=== PATIENT | male | born 1960 | race African-American/Black ===

== ENCOUNTER 2024-07-06 22:44 | Inpatient (IN) | payer OTHER ==
[2024-07-07 00:01] LABS: EPI CELLS 3 /uL (0-25.1); HYALINE CASTS 0 /uL (0-3.1); PH,URINE 7.5 (5.0-8.0); URINE APPEARANCE CLOUDY; URINE BACTERIA >9,000 /uL (0-1359); URINE BILIRUBIN NEGATIVE (NEGATIVE); URINE COLOR YELLOW; URINE GLUCOSE (UA) TRACE (NEGATIVE); URINE KETONE TRACE (NEGATIVE); URINE LEUK ESTERASE 2+ (NEGATIVE); URINE NITRITE NEGATIVE (NEGATIVE); URINE PROTEIN 3+ (NEGATIVE); URINE RBC 181 /uL (0-23.9); URINE WBC 1316 /uL (0-25.8)
[2024-07-07] MEDS ORDERED: morphine SULFATE 4 MG/ML VIAL ONE (00:12)
[2024-07-07] MEDS ORDERED: ACETAMINOPHEN INJECTION 100 ML IVPB ONE (00:12)
[2024-07-07] MEDS ORDERED: CEFTRIAXONE 1 GM/50 ML BAG ONE (00:12)
[2024-07-07 00:16] LABS: HEMATOCRIT 31.1 % (35.4-49); HEMOGLOBIN 10.3 GM/dL (11.7-16.9); MCH 26.3 pg (25.7-33.7); MEAN CELL VOLUME 79.7 fl (80-96); MEAN PLT VOLUME 8.4 fl (7.5-11.1); PLATELET COUNT 323 10^3/uL (134-434); RBC 3.91 M/mm3 (4.00-5.60); RDW 16.1 % (11.9-15.9); WHITE BLOOD COUNT 9.4 K/mm3 (4.0-10.0)
[2024-07-07 00:20] LABS: INR 1.16 (0.83-1.09)
[2024-07-07 00:23] LABS: ACTIVATED PTT 31.6 SECONDS (25.2-36.5)
[2024-07-07] MEDS: SODIUM CHLORIDE 0.9% 500 ML INFUS.BAG IV ONE ×3 (00:24→03:01)
[2024-07-07] MEDS: ACETAMINOPHEN 1000 MG/100 ML BAG IVPB ONE (00:24)
[2024-07-07 00:35] LABS: POTASSIUM 4.2 mmol/L (3.5-5.1)
[2024-07-07 00:37] LABS: CALCIUM 9.5 mg/dL (8.5-10.1)
[2024-07-07 00:38] LABS: ALBUMIN 2.8 g/dl (3.4-5.0); BLOOD UREA NITROGEN 21.6 mg/dL (7-18)
[2024-07-07 00:41] LABS: CREATININE 1.3 mg/dL (0.55-1.3)
[2024-07-07 00:42] LABS: BILIRUBIN,TOTAL 0.7 mg/dL (0.2-1); TOT PROT 7.6 g/dl (6.4-8.2)
[2024-07-07] MEDS: morphine CARPU-JECT 2 MG/1 ML DISP.SYRIN IVPUSH ONE (00:43)
[2024-07-07 00:59] LABS: LACTIC ACID 2.2 mmol/L (0.4-2.0)
[2024-07-07] MEDS ORDERED: KETOROLAC TROMETHAMINE 15 MG/ML VIAL ONE (01:45)
[2024-07-07] MEDS: IBUPROFEN 400 MG TABLET (FP) PO ONE (01:52)
[2024-07-07] MEDS: KETOROLAC TROMETHAMINE 15 MG/ML VIAL IVPUSH ONE (01:54)
[2024-07-07] MEDS: morphine CARPU-JECT 4 MG/1 ML DISP.SYRIN IVPUSH ONE (02:00)
[2024-07-07] MEDS ORDERED: SODIUM CHLORIDE 500 ML IV STA (05:45)
[2024-07-07 06:24] LABS: ANISOCYTOSIS 1+; MACROCYTOSIS 0
[2024-07-07] MEDS: SODIUM CHLORIDE 1,000 ML IV STA (06:27)
[2024-07-07] MEDS: levETIRAcetam 500 MG/5 ML INJECTION VIAL IVPB STA (06:28)
[2024-07-07] MEDS: GABAPENTIN 300 MG CAPSULE PO SCH (06:28)
[2024-07-07] MEDS: INSULIN (LEVEMIR) 100 UNITS/ML UNITS SQ SCH (06:29)
[2024-07-07] MEDS: INSULIN ASPART SLIDING SCALE (NOVOLOG) 1 VIAL SQ SCH (06:30)
[2024-07-07] MEDS: levETIRAcetam 500 MG TABLET (FP) PO ONE (06:46)
[2024-07-07] MEDS: ENOXAPARIN NA (PORCINE) 40 MG/0.4 ML DISP.SYRIN SQ SCH (09:18)
[2024-07-07] MEDS: TAMSULOSIN HCL 0.4 MG CAP PO SCH (09:18)
[2024-07-07] MEDS: FAMOTIDINE 20 MG TABLET PO SCH (09:18)
[2024-07-07] MEDS: ASPIRIN 81 MG CHEWABLE TABLETS PO SCH (09:18)
[2024-07-07] MEDS: CEFTRIAXONE 1 GM in DEXTROSE 5%-WATER - 50 ML IVPB SCH (09:18)
[2024-07-07 09:31] LABS: HEMATOCRIT 28.4 % (35.4-49); HEMOGLOBIN 9.2 GM/dL (11.7-16.9); MCH 25.9 pg (25.7-33.7); MCHC 32.5 g/dl (32.0-35.9); MEAN CELL VOLUME 79.8 fl (80-96); MEAN PLT VOLUME 8.4 fl (7.5-11.1); PLATELET COUNT 282 10^3/uL (134-434); RBC 3.56 M/mm3 (4.00-5.60); RDW 16.4 % (11.9-15.9); RETICULOCYTES 1.05 % (0.5-1.5)
[2024-07-07 09:45] LABS: POTASSIUM 4.7 mmol/L (3.5-5.1)
[2024-07-07 09:51] LABS: BLOOD UREA NITROGEN 21.8 mg/dL (7-18); CALCIUM 8.5 mg/dL (8.5-10.1)
[2024-07-07 09:52] LABS: MAGNESIUM 1.3 mg/dL (1.8-2.4)
[2024-07-07 09:53] LABS: CREATININE 1.4 mg/dL (0.55-1.3)
[2024-07-07 09:54] LABS: PHOSPHOROUS 3.3 mg/dL (2.5-4.9)
[2024-07-07 09:55] LABS: BILIRUBIN,TOTAL 0.7 mg/dL (0.2-1); TOT PROT 6.2 g/dl (6.4-8.2)
[2024-07-07 10:00] LABS: ALBUMIN 2.2 g/dl (3.4-5.0)
[2024-07-07] MEDS ORDERED: levETIRAcetam 500 MG TABLET (FP) PO SCH (10:00)
[2024-07-07] MEDS ORDERED: metoPROLOL SUCCINATE 25 MG TAB.SR.24H (FP) PO SCH (10:00)
[2024-07-07 10:15] LABS: LACTIC ACID 2.4 mmol/L (0.4-2.0)
[2024-07-07 11:29] LABS: ANISOCYTOSIS 0; MACROCYTOSIS 0
[2024-07-07] MEDS: POLYETHYLENE GLYCOL (HEALTHYLAX) 3350 17 GM PACKET PO SCH (11:39)
[2024-07-07] MEDS: BISACODYL 5 MG TABLET.DR (FP) PO PRN (11:57)
[2024-07-07] MEDS: levETIRAcetam 500 MG TABLET (FP) PO SCH (17:15)
[2024-07-07] MEDS: LACTATED RINGERS SOLUTION 1,000 ML/1,000 ML INFUS.BAG IV SCH (21:38)
[2024-07-07] MEDS: ACETAMINOPHEN 1000 MG/100 ML BAG IVPB PRN (21:38)
[2024-07-07] MEDS: ROSUVASTATIN CA 20 MG TABLET PO SCH (21:39)
[2024-07-08 09:21] LABS: HEMOGLOBIN 9.8 GM/dL (11.7-16.9); MCH 26.1 pg (25.7-33.7); MCHC 32.8 g/dl (32.0-35.9); MEAN CELL VOLUME 79.5 fl (80-96); MEAN PLT VOLUME 8.8 fl (7.5-11.1); PLATELET COUNT 270 10^3/uL (134-434); RBC 3.77 M/mm3 (4.00-5.60); RDW 16.3 % (11.9-15.9)
[2024-07-08 09:31] LABS: POTASSIUM 4.1 mmol/L (3.5-5.1)
[2024-07-08 09:33] LABS: CALCIUM 8.8 mg/dL (8.5-10.1)
[2024-07-08 09:34] LABS: MAGNESIUM 1.4 mg/dL (1.8-2.4)
[2024-07-08] MEDS: CEFTRIAXONE 2 GM in DEXTROSE 5%-WATER 100 ML IVPB SCH (09:47)
[2024-07-08 10:50] LABS: PHOSPHOROUS 2.7 mg/dL (2.5-4.9)
[2024-07-08 10:52] LABS: CREATININE 1.7 mg/dL (0.55-1.3)
[2024-07-08 14:16] VITALS: BMI 21.2
[2024-07-08] MEDS: HEPARIN NA (PORCINE) 5,000 UNITS/ML 1ML VIAL SQ SCH (22:01)
[2024-07-09 09:14] LABS: HEMATOCRIT 26.7 % (35.4-49); HEMOGLOBIN 8.6 GM/dL (11.7-16.9); MCH 25.6 pg (25.7-33.7); MCHC 32.1 g/dl (32.0-35.9); MEAN CELL VOLUME 79.8 fl (80-96); MEAN PLT VOLUME 9.3 fl (7.5-11.1); PLATELET COUNT 241 10^3/uL (134-434); RBC 3.34 M/mm3 (4.00-5.60); RDW 16.8 % (11.9-15.9); WHITE BLOOD COUNT 11.1 K/mm3 (4.0-10.0)
[2024-07-09 09:32] LABS: POTASSIUM 3.8 mmol/L (3.5-5.1)
[2024-07-09] MEDS: MULTIVITAMINS (DAILY MVI) TABLET (FP) PO SCH (09:33)
[2024-07-09 09:34] LABS: ALBUMIN 1.8 g/dl (3.4-5.0); BLOOD UREA NITROGEN 23.8 mg/dL (7-18); CALCIUM 8.7 mg/dL (8.5-10.1)
[2024-07-09 09:37] LABS: CREATININE 1.4 mg/dL (0.55-1.3)
[2024-07-09 09:38] LABS: BILIRUBIN,TOTAL 0.6 mg/dL (0.2-1); MAGNESIUM 1.5 mg/dL (1.8-2.4); PHOSPHOROUS 2.5 mg/dL (2.5-4.9)
[2024-07-09 09:39] LABS: TOT PROT 5.6 g/dl (6.4-8.2)
[2024-07-09] MEDS: MAGNESIUM 2GM/50ML STERILE WATER IVPB IVPB ONE (10:22)
[2024-07-09 13:14] VITALS: RESP 18
[2024-07-09] MEDS: ACETAMINOPHEN 325 MG TABLET (FP) PO ONE (19:42)
[2024-07-10 08:58] LABS: MCH 25.8 pg (25.7-33.7); MCHC 32.2 g/dl (32.0-35.9); MEAN PLT VOLUME 9.5 fl (7.5-11.1); PLATELET COUNT 267 10^3/uL (134-434); RDW 16.6 % (11.9-15.9); WHITE BLOOD COUNT 7.9 K/mm3 (4.0-10.0)
[2024-07-10 09:20] LABS: ALBUMIN 1.7 g/dl (3.4-5.0); CALCIUM 8.6 mg/dL (8.5-10.1); MAGNESIUM 1.6 mg/dL (1.8-2.4)
[2024-07-10 09:23] LABS: CREATININE 1.3 mg/dL (0.55-1.3)
[2024-07-10 09:24] LABS: PHOSPHOROUS 2.8 mg/dL (2.5-4.9)
[2024-07-10 09:25] LABS: BILIRUBIN,TOTAL 0.5 mg/dL (0.2-1); TOT PROT 5.6 g/dl (6.4-8.2)
[2024-07-11 10:27] LABS: HEMOGLOBIN 9.7 GM/dL (11.7-16.9); MCH 26.3 pg (25.7-33.7); MCHC 33.5 g/dl (32.0-35.9); MEAN CELL VOLUME 78.6 fl (80-96); MEAN PLT VOLUME 9.4 fl (7.5-11.1); PLATELET COUNT 288 10^3/uL (134-434); RBC 3.69 M/mm3 (4.00-5.60); RDW 17.1 % (11.9-15.9); WHITE BLOOD COUNT 7.8 K/mm3 (4.0-10.0)
[2024-07-11 10:59] LABS: ALBUMIN 1.8 g/dl (3.4-5.0); BLOOD UREA NITROGEN 17.5 mg/dL (7-18)
[2024-07-11 11:00] LABS: CALCIUM 8.9 mg/dL (8.5-10.1)
[2024-07-11 11:01] LABS: MAGNESIUM 1.7 mg/dL (1.8-2.4)
[2024-07-11 11:04] LABS: CREATININE 1.1 mg/dL (0.55-1.3); PHOSPHOROUS 3.7 mg/dL (2.5-4.9)
[2024-07-11 11:05] LABS: BILIRUBIN,TOTAL 0.4 mg/dL (0.2-1); TOT PROT 5.9 g/dl (6.4-8.2)
[2024-07-12 10:04] VITALS: PULSE 87; TEMP 97.9
[2024-07-12 10:22] LABS: HEMATOCRIT 29.3 % (35.4-49); HEMOGLOBIN 9.7 GM/dL (11.7-16.9); MCH 26.3 pg (25.7-33.7); MCHC 33.2 g/dl (32.0-35.9); MEAN PLT VOLUME 8.9 fl (7.5-11.1); PLATELET COUNT 360 10^3/uL (134-434); RDW 16.9 % (11.9-15.9)
[2024-07-12 10:24] LABS: BASO % 0.6 % (0-2.0); EOS % 2.8 % (0-4.5); HEMATOCRIT 29.1 % (35.4-49); HEMOGLOBIN 9.7 GM/dL (11.7-16.9); LYMPH % 7.7 % (8-40); MCH 26.3 pg (25.7-33.7); MCHC 33.3 g/dl (32.0-35.9); MEAN CELL VOLUME 78.8 fl (80-96); MEAN PLT VOLUME 8.9 fl (7.5-11.1); MONO % 13.7 % (3.8-10.2); NEUT % 75.2 % (42.8-82.8); PLATELET COUNT 348 10^3/uL (134-434); RBC 3.69 M/mm3 (4.00-5.60); RDW 17.1 % (11.9-15.9)
[2024-07-12 10:41] LABS: POTASSIUM 3.7 mmol/L (3.5-5.1)
[2024-07-12 10:44] LABS: CALCIUM 9.1 mg/dL (8.5-10.1)
[2024-07-12 10:45] LABS: MAGNESIUM 1.7 mg/dL (1.8-2.4)
[2024-07-12 10:48] LABS: CREATININE 1.2 mg/dL (0.55-1.3); PHOSPHOROUS 3.9 mg/dL (2.5-4.9)
[2024-07-12 10:49] LABS: BILIRUBIN,TOTAL 0.4 mg/dL (0.2-1); TOT PROT 6.5 g/dl (6.4-8.2)
[2024-07-12 16:56] VITALS: BP 106/95
[2024-07-12] MEDS ORDERED: TAMSULOSIN HCL 0.4 MG CAP PO SCH (22:00)
== END 2024-07-12 18:54 | disposition home or self-care (01) | DRG 872 ==
LOC: JER 22:44 → JERBED 07-07 02:30 → J5S 07-07 05:39
PROVIDERS: ADMIT Internal Medicine
DX: A41.9 Sepsis, unspecified organism (principal); N39.0 Urinary tract infection, site not specified; I69.354 Hemiplegia and hemiparesis following cerebral infarction affecting left non-dominant side; N13.30 Unspecified hydronephrosis; N13.4 Hydroureter; E87.20 Acidosis, unspecified; E11.9 Type 2 diabetes mellitus without complications; I10 Essential (primary) hypertension; E78.5 Hyperlipidemia, unspecified; F32.A Depression, unspecified; R65.20 Severe sepsis without septic shock; R33.8 Other retention of urine; K59.00 Constipation, unspecified; D50.9 Iron deficiency anemia, unspecified; B96.20 Unspecified Escherichia coli [E. coli] as the cause of diseases classified elsewhere; C61 Malignant neoplasm of prostate
CPT/HCPCS: 0241U-QW; 36415; 71045-TC-FY; 74177-TC; 80048; 80053; 81003; 82728; 82962; 83036; 83540; 83550; 83605; 83690; 83735; 84100; 84466; 84484; 85025; 85027; 85045; 85610; 85730; 86850; 86900; 86901; 87040; 87086; 87186; 93005; 93010; 97116-GP; 97161-GP; 99285-25; J0131; J1644

== ENCOUNTER 2025-07-28 08:53 | Day surgery (SDC) | payer OTHER ==
[2025-07-20 13:53] VITALS: BMI 21.7
[2025-07-28 09:23] VITALS: TEMP 98
[2025-07-28 11:14] VITALS: RESP 18
[2025-07-28 11:15] VITALS: BP 134/65; PULSE 72
== END 2025-07-28 11:44 | disposition home or self-care (01) ==
LOC: FASU-ENDO 08:53
PROVIDERS: ATTEND Internal Medicine Gastroenterology
PROC: 0DBP8ZX Excision of Rectum, Via Natural or Artificial Opening Endoscopic, Diagnostic (ICD-10-PCS; 2025-07-28)
PROC: 0DB68ZX Excision of Stomach, Via Natural or Artificial Opening Endoscopic, Diagnostic (ICD-10-PCS; 2025-07-28)
PROC: 0DB78ZX Excision of Stomach, Pylorus, Via Natural or Artificial Opening Endoscopic, Diagnostic (ICD-10-PCS; 2025-07-28)
PROC: 3E0H8KZ Introduction of Other Diagnostic Substance into Lower GI, Via Natural or Artificial Opening Endoscopic (ICD-10-PCS; 2025-07-28)
PROC: 0DBK8ZX Excision of Ascending Colon, Via Natural or Artificial Opening Endoscopic, Diagnostic (ICD-10-PCS; principal; 2025-07-28 10:02)
DX: Z12.11 Encounter for screening for malignant neoplasm of colon (principal); D12.2 Benign neoplasm of ascending colon; D12.8 Benign neoplasm of rectum; K64.0 First degree hemorrhoids; K29.50 Unspecified chronic gastritis without bleeding; K31.89 Other diseases of stomach and duodenum; K44.9 Diaphragmatic hernia without obstruction or gangrene
CPT/HCPCS: 82962; 88305-TC; 88342-TC